=== PATIENT | male | born 1980 | race Two or more races ===

== ENCOUNTER 2016-12-14 20:09 | Emergency (ER) | payer SELFPAY ==
[~2016-12-14] VITALS: Ht 170.2 cm; Wt 114.3 kg
[2016-12-14 21:35] LABS: BILIRUBIN,URINE NEGATIVE (NEG); GLUCOSE,URINE NEGATIVE (NEG); NITRITE,URINE NEGATIVE (NEG); PROTEIN,URINE NEGATIVE (NEG-TRACE)
[2016-12-14 21:39] LABS: NEG OBC FOB NEG; POS OBC FOB POS
[2016-12-14 21:43] LABS: BACTERIA,URINE 0 /HPF (0-FEW); RBC,URINE OCC /HPF (0-2); WBC,URINE 0 /HPF (0-4)
[2016-12-14 21:48] VITALS: BP 126/79
[2016-12-14] MEDS ORDERED: DOCU-109 PO (22:04)
[2016-12-14] MEDS ORDERED: LIDO30CR6 TP (22:04)
[2016-12-14] MEDS ORDERED: SENN-79 PO (22:04)
[2016-12-14] MEDS ORDERED: HYDR25SU18 RC (22:04)
--- NOTE | 2016-12-14 22:04 | PHYS DOC ---
Past Medical History Past Medical History: Arthritis, GERD Past Surgical History: Appendectomy Alcohol Use: Occasionally Additional Information: 2 beers [employer] Drug Use: None Adult General Chief Complaint Chief Complaint: RECTAL BLEED HPI HPI Patient is a 36 year old male who presents with blood in urine & stool. He states today he noticed blood on toilet paper after having a bowel movement. He did not see blood in the toilet or intermixed with stool, no melena. States 5 days ago he saw blood in his urine. Denies fevers/chills, nausea/vomiting, hematemesis, abdominal pain, flank pain, diarrhea, dysuria. He does report constipation & straining. Denies previous history of hematuria or hematochezia. No significant past medical history, denies use of blood thinners. He does have history of GERD. Review of Systems Review of Systems Constitutional: Denies fever or chills HENT: Denies nasal congestion or sore throat Respiratory: Denies cough or shortness of breath Cardiovascular: Denies chest pain or edema GI: Denies abdominal pain, nausea, vomiting, or diarrhea, reports bloody stools and constipation : Denies dysuria, reports hematuria Musculoskeletal: Denies back pain or joint pain Integument: Denies rash or skin lesions Neurologic: Denies headache Allergies Allergies Allergies Coded Allergies Type Severity Reaction Last Updated Verified No Known Drug Allergies 12/14/16 No Physical Exam Physical Exam Constitutional: Well developed, well nourished, no acute distress, non-toxic appearance. HENT: Normocephalic, atraumatic, bilateral external ears normal, oropharynx moist, nose normal. Eyes: conjunctiva normal, no discharge. Cardiovascular: RRR, no murmurs, no edema. Lungs & Thorax: LCTAB, no wheezing, no respiratory distress. Abdomen: soft, nontender, nondistended. Rectal: no external hemorrhoid, no fissure identified, no masses, good tone, no blood on exam glove, hemoccult sent. Skin: Warm, dry, no erythema, no rash. Back: No CVA tenderness. Extremities: No tenderness, no edema. Neurologic: Alert and oriented X 3 Current Patient Data Vital Signs Vital Signs Date Time Temp Pulse Resp B/P (MAP) Pulse Ox O2 Delivery O2 Flow Rate FiO2 12/14/16 21:48 78 30 126/79 (95) 97 Room Air 12/14/16 20:44 98.6 98.6 Lab Values Laboratory Tests Test 12/14/16 20:54 12/14/16 21:20 Urine Collection Type Void Urine Color Yellow Urine Clarity Clear Urine pH 7.0 Urine Specific [place] 1.020 Urine Protein Negative mg/dL (NEG-TRACE) Urine Glucose (UA) Negative mg/dL (NEG) Urine Ketones (Stick) Negative mg/dL (NEG) Urine Blood Negative (NEG) Urine Nitrite Negative (NEG) Urine Bilirubin Negative (NEG) Urine Urobilinogen Dipstick 2.0 mg/dL (0.2 mg/dL) Urine Leukocyte Esterase Negative (NEG) Urine RBC Occ /HPF (0-2) Urine WBC 0 /HPF (0-4) Urine Squamous Epithelial Cells None /LPF Urine Bacteria 0 /HPF (0-FEW) Urine Mucus Marked /LPF Stool Occult Blood Negative (NEG) EKG EKG [] Radiology/Procedures Radiology/Procedures [] Course & Med Decision Making Course & Med Decision Making Pertinent Labs and Imaging studies reviewed. (See chart for details) The patient presents with hematochezia & hematuria. Vitals stable, no abdominal tenderness, described symptoms are mild. No blood in urine or stool today. Likely blood in stools related to constipation possible fissure. Recommend stool softeners, increase fluid/fiber, gave anusol & recticare. Follow up with PCP or GI in 2-3 days. At this time probably not necessary to see rectal surgeon but may need referral. Come back for severe pain, large volume hematemesis/hematochezia, melena, any otherwise worsening condition. Discharged home in stable condition. [] Dragon Disclaimer Dragon Disclaimer This electronic medical record was generated, in whole or in part, using a voice recognition dictation system. Departure Departure Impression: Primary Impression: Rectal pain Disposition: HOME, SELF-CARE Condition: STABLE Referrals: NO PCP (PCP) MOMO ROSS MD Patient Instructions: Rectal Bleeding, [id number] Additional Instructions: You were seen in the emergency department today for rectal bleeding. There was no blood in your stools today. Please take stool softener to prevent straining. Use the rectal medications to treat possible fissure and pain. Follow-up with primary care physician in 2-3 days. Also consider make an appointment with GI for further evaluation. Come back for severe abdominal pain, vomiting blood, large amount of blood in stools, any otherwise worsening condition. Scripts Lidocaine (RECTICARE) 30 Gm Cream..g. 30 GM TP DAILY Y for RECTAL PAIN, #1 EACH Prov: JOAQUIN YUEN MD 12/14/16 Hydrocortisone Acetate (ANUSOL-HC) 25 Mg Supp.rect 1 SUPP RC BID, #14 SUPP Prov: JOAQUIN YUEN MD 12/14/16 Sennosides (SENNA) 8.6 Mg Tablet 17.2 MG PO DAILY Y for CONSTIPATION, #30 TAB Prov: JOAQUIN YUEN MD 12/14/16 Docusate Sodium (COLACE) 100 Mg Capsule 1 CAP PO BID, #30 CAP Prov: JOAQIUN YUEN MD 12/14/16 JOAQUIN YUEN MD Dec 14, 2016 22:04
== END 2016-12-14 22:17 | disposition home or self-care (01) ==
LOC: ER 20:09
DX: K62.89 Other specified diseases of anus and rectum (principal); R31.9 Hematuria, unspecified; K92.1 Melena; K59.00 Constipation, unspecified; K21.9 Gastro-esophageal reflux disease without esophagitis; M19.90 Unspecified osteoarthritis, unspecified site; Z90.49 Acquired absence of other specified parts of digestive tract
CPT/HCPCS: 81001; 82274; 99284